=== PATIENT | female | born 1975 | race Caucasian/White ===

== ENCOUNTER 2017-03-13 06:16 | Inpatient (IN) | payer OTHER ==
[2016-01-29 12:06] VITALS: BMI 34.2
[2017-03-13] MEDS ORDERED: Midazolam 2 MG/2 ML VIAL ONE (07:06)
[2017-03-13] MEDS ORDERED: Propofol 10 mg/ml Inj (20 ML) ONE (07:06)
[2017-03-13] MEDS ORDERED: ceFAZolin IV 2 gm in Dextrose 1 GM/50 ML BAG IVPB ONE (07:22)
[2017-03-13] MEDS ORDERED: Methylene Blue 10 mg/ml (1ml) Inj ONE (08:23)
[2017-03-13] MEDS ORDERED: Bacitracin 500 Units/gm Oint Foilpak UD ONE ×2 (08:48→08:52)
[2017-03-13] MEDS ORDERED: Neostigmine Methylsulfate 3mg/3ml Syringe IV ONE (09:19)
[2017-03-13] MEDS ORDERED: Morphine 4 MG/ML VIAL ONE (09:49)
--- NOTE | 2017-03-13 10:07 | PCM.SURG1 ---
Surgeon's Initial Post Op Note - Surgeon's Notes Surgeon: Sandy Curtis MD Profile Shaper Operator: Matti Larios MD Type of Anesthesia: General Endo Anesthesia Administered By: Dr Arauz Pre-Operative Diagnosis: Abnormal uterine bleeding, severe pelvic pain Operative Findings: Enlarged 14 week size uterus, congested bilateral cornua, normal ovaries bilaterally, normal fallopian tubes with effect of previous bilateral tubal ligation, patent bilateral ureters on cystsocopoy. Dr Matti Larios was rn surgical pcu and was present for entrie case and essential in gaining entry, retraction, exposure, lysis adhesions, holding bladder blade, removeing speciment, obtaining hemostasis and closing all layers. Post-Operative Diagnosis: same as above Operation Performed: Total abdominal hysterectomy, bilateral salpingectomy, cystoscopy Specimen/Specimens Removed: Uterus, cervix, left and right fallopian tube Estimated Blood Loss: EBL {In ML}: 300 Blood Products Given: N/A Drains Used: No Drains Date of Surgery/Procedure: 03/13/17 Time of Surgery/Procedure: 07:30
[2017-03-13] MEDS ORDERED: HYDROmorphone 0.5 mg/0.5 ml ISec IVP PRN (10:45)
[2017-03-13] MEDS ORDERED: HYDROmorphone 0.5 mg/0.5 ml ISec IVP ONE (11:01)
--- NOTE | 2017-03-13 11:14 | OP ---
PROCEDURE DATE: 03/13/2017 SURGEON: Dr. Sandy Curtis. BILINGUAL ACCOUNT MANAGER: Dr. Matti Larios. TYPE OF ANESTHESIA: General endotracheal anesthesia administered by Dr. Muhammad. PREOPERATIVE DIAGNOSIS: Abnormal uterine bleeding, severe pelvic pain. POSTOPERATIVE DIAGNOSIS: Abnormal uterine bleeding, severe pelvic pain. OPERATIVE FINDINGS: Large 14-week size uterus, congested bilateral cornua, normal ovaries bilaterall y, normal fallopian tube with suspected previous bilateral tubal ligation. Patent bilateral ureters on cystoscopy. Dr. Matti Larios was the surgical services asst and was present for entire case and was essential in gaining entry, retraction, exposure, lysis of adhesions, holding bladder blade, removing specimen, obtaining hemostasis, and closing all layers. OPERATION PERFORMED: Total abdominal hysterectomy, bilateral salpingectomy, cystoscopy. SPECIMEN REMOVED: Uterus, cervix, left and right fallopian tubes. ESTIMATED BLOOD LOSS: 300 mL. BLOOD PRODUCTS: None. COMPLICATIONS: None. INDICATIONS: The patient is a 41-year-old para 2 with persistent and abnormal uterine bleeding with severe pelvic pain that previously had undergone a bilateral tubal ligation and subsequently suffered from menorrhagia which then progressed to abnormal uterine bleeding. The patient was initially lizzette ged with multiple regimens including control pills, underwent hysteroscopic myomectomy with david rine ablation and failed multiple treatments. Pain was also not controlled with [id number] med ications and combined therapy. The patient opted for definitive surgical management which included t otal abdominal hysterectomy. DESCRIPTION OF PROCEDURE: The patient was taken to the operating room where she was given general an esthesia. She was positioned on the operating table in dorsal supine position. The patient was then prepped and draped in the usual normal sterile fashion. A timeout confirmed correct patient and cor rect procedure. The patient was given preoperative prophylactic antibiotics. Incision was made in t abdomen, a Pfannenstiel using scalpel and carried in line to the underlying subcutaneous tissue wi th the scalpel. The fascia was incised in the midline and the incision was extended laterally with [facility] Bovie. The superior aspect of the fascial incision was grasped, elevated with Millicent clamps and t underlying rectus muscles dissected off bluntly. Attention was then turned to the inferior aspect of the incision which in similar fashion, was grasped, elevated with Millicent clamps and the underlyin g rectus muscles were dissected off bluntly with the use of Bond scissors. The rectus muscles were t hen bluntly in the midline. The peritoneum was identified and the clear space tented up us ing Karen clamps and entered with the Metzenbaum scissors. The clear space incision extended lateral ly and superiorly until there was good visualization. Once inside the abdominal cavity, a self-retai rosie retractor was placed to expose the pelvic cavity with 3 lap sponges. The uterus was then identi fied and grasped on the fundus with a corkscrew tenaculum with upward traction. The round ligaments on either side were identified and individually dissected and ligated with the LigaSure device. This allowed us then to create a bladder flap by both blunt and sharp dissection. The bladder flap was t hen pushed down. The fallopian tube and ovarian ligament were isolated through the broad ligament fr om the uterine body and ligated with 0 Vicryl suture and divided as well. We then skeletonized the u terine vessels which appeared to be very large on either side and carefully dissected the bladder fla p anteriorly. Posteriorly, the peritoneum was dissected down toward the uterosacral ligaments. Hean ey clamps were then placed at each isthmic portion of the cervical body junction where the uterine ar teries had joined the uterus. These were clamped, ligated and divided using 0 Vicryl suture. The re mainder of the uterus was removed by using a clamp, cut, ligation technique using 0 Vicryl in all kirk or pedicles down to the cervix. With removal of the uterus and cervix, the vaginal cuff was closed i n the manner usual with 0 Vicryl in an interrupted manner. Hemostasis was then inspected and secured throughout the entire area. We closed the peritoneum over the vaginal cuff using a 2-0Vicryl suture in a running continuous manner. The ovaries were left in situ and suspended to the sidewalls. The lap sponges were then removed and the self-retaining retractor was removed. There was good hemostasi s noted. The patient tolerated the procedure well. There were no complications associated with ____ procedure up to this point. Following this, the peritoneum was reapproximated and closed with 2-0 c hromic in a running continuous fashion. The rectus was then reapproximated and closed with 2-0 Vicry l in an interrupted manner. The subcutaneous space was closed with 2-0 plain interrupted. Skin was reapproximated and closed with 4-0 Monocryl in a running subcuticular fashion. The abdomen was then cleaned and irrigated and Steri-Strips were applied to the abdominal incision with a pressure dressin g. Following this, attention was then turned to the perineum where the patient was then placed in li thotomy position. The genitalia was properly prepped and draped in the usual normal sterile fashion. A 21-Kazakh cystoscope was inserted into the urethra under direct visualization. The urethra was u nremarkable. There were bilateral patent ureters noted on either side. There were no masses, no sut ures or any additional pathology noted within the bladder. The cystoscope was then removed and a Fol ey catheter was then reinserted. At the end of the procedure, all needle, sponge and instrument coun ts were noted to be correct x 2. The patient tolerated the procedure well and was transferred to the recovery room in stable condition. Sandy Curtis MD cc: [id number] TT: 03/13/2017 11:13:31 tn
[2017-03-13 11:24] LABS: CHLORIDE 100 mmol/L (98-107); HEMATOCRIT 35.7 % (34.0-47.0); MEAN CELL VOLUME 89.9 fL (81.0-99.0); MEAN CORPUSCULAR HEMOGLOBIN 29.3 pg (27.0-31.0); MEAN CORPUSCULAR HGB CONC 32.6 g/dL (33.0-37.0); MEAN PLATELET VOLUME 8.1 fL (7.2-11.7); POTASSIUM 3.7 mmol/L (3.6-5.2); RED CELL DISTRIBUTION WIDTH 13.1 % (11.5-14.5); SODIUM 137 mmol/L (132-148)
[2017-03-13 11:25] LABS: WHITE BLOOD COUNT 18.6 K/uL (4.8-10.8)
[2017-03-13 11:26] LABS: CARBON DIOXIDE 24 mmol/L (22-30); GFR AFRICAN-AMERICAN > 60
[2017-03-13 11:27] LABS: BLOOD UREA NITROGEN 11 mg/dL (7-17); CALCIUM 8.5 mg/dl (8.6-10.4); GLUCOSE,RANDOM 137 mg/dL (65-105)
[2017-03-13] MEDS: Lactated Ringer's 1,000 ML IV SCH ×2 (12:15→20:25)
[2017-03-13] MEDS: ceFAZolin IV 1 gm in Dextrose 1 GM/50 ML BAG IVPB SCH ×2 (15:02→22:49)
[2017-03-13] MEDS: Simethicone 80 mg Chewtab PO SCH ×2 (15:03→21:29)
[2017-03-14] MEDS ORDERED: HYDROMORPHONE 0.2 MG/ML IV ONE (00:21)
[2017-03-14] MEDS: Lactated Ringer's 1,000 ML IV SCH ×2 (04:57→10:23)
[2017-03-14] MEDS: ceFAZolin IV 1 gm in Dextrose 1 GM/50 ML BAG IVPB SCH (06:28)
[2017-03-14] MEDS: Simethicone 80 mg Chewtab PO SCH ×3 (07:16→22:01)
[2017-03-14 07:35] LABS: HEMATOCRIT 35.7 % (34.0-47.0); MEAN CORPUSCULAR HEMOGLOBIN 29.5 pg (27.0-31.0); MEAN CORPUSCULAR HGB CONC 33.5 g/dL (33.0-37.0); MEAN PLATELET VOLUME 8.3 fL (7.2-11.7); WHITE BLOOD COUNT 10.2 K/uL (4.8-10.8)
[2017-03-14 07:38] VITALS: RESP 18; O2SAT 98
[2017-03-14 07:43] LABS: CHLORIDE 98 mmol/L (98-107); SODIUM 136 mmol/L (132-148)
[2017-03-14 07:46] LABS: BLOOD UREA NITROGEN 8 mg/dL (7-17); CARBON DIOXIDE 30 mmol/L (22-30); GFR AFRICAN-AMERICAN > 60
[2017-03-14 07:47] LABS: CALCIUM 8.7 mg/dl (8.6-10.4); GLUCOSE,RANDOM 102 mg/dL (65-105)
[2017-03-14] MEDS: Oxycodone/Acetaminophen 5/325 mg Tab PO PRN ×3 (08:33→17:26)
--- NOTE | 2017-03-14 09:14 | CP.PCM.PN ---
Subjective - Date & Time of Evaluation Date of Evaluation: 03/14/17 Time of Evaluation: 09:00 - Subjective Subjective: pt was seen at bed side, pain under control, no n/v, tolerating liquid deit, voiding,min lohia, flatus- pod#1 total hystrectomy abd soft, mild ten dressing clean and dry ext mild edema, no calf ten stop project geologist pump cbc encourage ambulation cont pain management cont post op care Objective - Vital Signs/Intake and Output Vital Signs (last 24 hours): Temp Pulse Resp BP Pulse Ox 98.1 F 66 18 104/69 98 03/14/17 07:32 03/14/17 07:32 03/14/17 07:32 03/14/17 07:32 03/14/17 07:32 Intake and Output: 03/14/17 03/14/17 06:59 18:59 Intake Total 1600 Output Total 2400 Balance -800 - Medications Medications: Current Medications Hydromorphone HCl (Dilaudid) 0.5 mg IVP Q15M PRN PRN Reason: Pain, severe (8-10) Last Admin: 03/13/17 10:48 Dose: 0.5 mg Hydromorphone/Sodium Chloride (Dilaudid Ruby Engineer) 6 mg IV Q4H PRN; Protocol PRN Reason: Pain, severe (8-10) Last Admin: 03/13/17 12:00 Dose: 6 mg Lactated Ringer's (Lactated Ringer's) 1,000 mls @ 125 mls/hr IV .Q8H [facility] Stop: 03/14/17 10:00 Last Admin: 03/14/17 04:57 Dose: 125 mls/hr Ibuprofen (Motrin Tab) 600 mg PO TID [facility] Oxycodone/Acetaminophen (Percocet 5/325 Mg Tab) 1 tab PO Q4 PRN PRN Reason: Pain, moderate (4-7) Stop: 03/17/17 10:00 Last Admin: 03/14/17 08:33 Dose: 1 tab Oxycodone/Acetaminophen (Percocet 5/325 Mg Tab) 2 tab PO Q4H PRN PRN Reason: Pain, severe (8-10) Stop: 03/17/17 10:00 Simethicone (Mylicon Chew Tab) 80 mg PO Q8 [facility] Last Admin: 03/14/17 07:16 Dose: 80 mg - Labs Labs: 03/14/17 07:11 03/14/17 07:11 Assessment and Plan - Assessment and Plan (Free Text) Assessment: 41 yr s/p graham pod#1 Plan: stop project geologist pump cbc encourage ambulation cont pain management cont post op care
[2017-03-14] MEDS ORDERED: Magnesium Hydroxide Susp 30 ml UD PO ONE (09:43)
[2017-03-14] MEDS ORDERED: Oxycodone/Acetaminophen 5/325 mg Tab PO PRN (09:59)
[2017-03-15] MEDS: Oxycodone/Acetaminophen 5/325 mg Tab PO PRN ×2 (00:01→11:55)
[2017-03-15] MEDS: Simethicone 80 mg Chewtab PO SCH (06:20)
[2017-03-15 07:22] VITALS: BP 121/67; PULSE 75; TEMP 98.3
== END 2017-03-15 13:51 | disposition home or self-care (01) | DRG 743 ==
LOC: C.9S 06:16 → C.4M 11:08
PROVIDERS: ADMIT Obstetrics & Gynecology; ATTEND Obstetrics & Gynecology
PROC: 0UT70ZZ Resection of Bilateral Fallopian Tubes, Open Approach (ICD-10-PCS; 2017-03-13)
PROC: 0TJB8ZZ Inspection of Bladder, Via Natural or Artificial Opening Endoscopic (ICD-10-PCS; 2017-03-13)
PROC: 0UT90ZZ Resection of Uterus, Open Approach (ICD-10-PCS; principal; 2017-03-13 07:15)
PROC: 0UTC0ZZ Resection of Cervix, Open Approach (ICD-10-PCS; 2017-03-13 07:15)
DX: D25.9 Leiomyoma of uterus, unspecified (principal); N72 Inflammatory disease of cervix uteri; N83.8 Other noninflammatory disorders of ovary, fallopian tube and broad ligament; N93.8 Other specified abnormal uterine and vaginal bleeding; R10.2 Pelvic and perineal pain; Z98.51 Tubal ligation status